=== PATIENT | female | born 1940 | race African-American/Black ===

== ENCOUNTER 2018-04-25 12:53 | Emergency (ER) | payer SELFPAY ==
[~2018-04-25] VITALS: Ht 160 cm; Wt 64.0 kg
[~2018-04-25 12:53] MED LIST: ASPI-1079; ATOR40TA70; DILT180C3; DOCUSATE; DONE5TAB26; GLYB2.5T2; LANTUS; PANT40TA4; PRAV80TA; VALS1TAB80; [UNRECOGNIZED DRUG - OTHER]
[2018-04-25] MEDS ORDERED: SODIUM CHLORIDE 0.9% 1,000 ML IV ONE (13:54)
[2018-04-25 14:55] LABS: BASOPHILS % 0.6 % (0.0-2.0); EOSINOPHILS % 0.5 % (0.0-5.0); HEMATOCRIT. 40.3 % (36.0-48.0); HEMOGLOBIN. 13.6 g/dL (12.0-16.0); LYMPHOCYTES % 41.4 % (20.0-50.0); MEAN CORPUSCULAR HEMOGLOBIN 28.5 pg (28.0-32.0); MEAN CORPUSCULAR VOLUME 84.2 fL (81.0-99.0); MEAN PLATELET VOLUME 7.5 fl (7.4-10.4); MONOCYTES % 9.7 % (2.0-8.0); NEUTROPHILS % 47.8 % (40.0-76.0); PLATELET 229 x1000/uL (130-400); RED BLOOD CELL COUNT 4.78 mill/uL (4.2-5.4); RED CELL DISTRIBUTION WIDTH 13.3 % (11.6-14.6)
[2018-04-25 14:59] LABS: CHLORIDE 107 mEq/L (98-107)
[2018-04-25 15:28] VITALS: BP 143/76
[2018-04-25 16:42] LABS: CLARITY URINE CLEAR (CLEAR); COLOR URINE YELLOW (YELLOW); KETONES URINE NEGATIVE (NEGATIVE); LEUKOCYTE ESTERASE URINE NEGATIVE (NEGATIVE); NITRITE URINE NEGATIVE (NEGATIVE); OCCULT BLOOD URINE NEGATIVE (NEGATIVE); PH URINE 6.5 (4.5-8.0); PROTEIN URINE NEGATIVE (NEGATIVE); SPECIFIC GRAVITY URINE 1.016 (1.005-1.030); UROBILINOGEN URINE 0.2 E.U./dL (0.2-1.0)
== END 2018-04-25 17:14 | disposition left against medical advice (07) ==
LOC: ER 12:53
DX: J02.9 Acute pharyngitis, unspecified (principal); R10.9 Unspecified abdominal pain; I10 Essential (primary) hypertension; E11.9 Type 2 diabetes mellitus without complications
CPT/HCPCS: 36415; 71045; 80053; 81003; 83690; 85025; 87070; 87086; 87430; 99285; J7030

== ENCOUNTER 2018-08-27 20:22 | Emergency (ER) | payer OTHER ==
[~2018-08-27] VITALS: Ht 167.6 cm; Wt 68.1 kg
[2018-08-27 23:03] LABS: BASOPHILS % 0.8 % (0.0-2.0); EOSINOPHILS % 0.3 % (0.0-5.0); HEMATOCRIT. 43.8 % (36.0-48.0); HEMOGLOBIN. 14.4 g/dL (12.0-16.0); LYMPHOCYTES % 21.7 % (20.0-50.0); MEAN CORPUSCULAR VOLUME 85.4 fL (81.0-99.0); MEAN PLATELET VOLUME 7.6 fl (7.4-10.4); MONOCYTES % 7.9 % (2.0-8.0); NEUTROPHILS % 69.3 % (40.0-76.0); PLATELET 266 x1000/uL (130-400); RED BLOOD CELL COUNT 5.13 mill/uL (4.2-5.4); RED CELL DISTRIBUTION WIDTH 13.1 % (11.6-14.6)
[2018-08-27 23:05] LABS: CHLORIDE 106 mEq/L (98-107)
[2018-08-27 23:46] VITALS: BP 189/88
== END 2018-08-28 01:00 | disposition home or self-care (01) ==
LOC: ER 20:22
DX: R11.2 Nausea with vomiting, unspecified (principal); R53.1 Weakness; R42 Dizziness and giddiness; E11.9 Type 2 diabetes mellitus without complications; I10 Essential (primary) hypertension; F03.90 Unspecified dementia, unspecified severity, without behavioral disturbance, psychotic disturbance, mood disturbance, and anxiety; Z90.710 Acquired absence of both cervix and uterus; Z79.899 Other long term (current) drug therapy
CPT/HCPCS: 36415; 93005; 99284

== ENCOUNTER 2021-07-13 14:02 | Inpatient (IN) | payer MEDICARE ==
[~2021-07-13] VITALS: Ht 157.5 cm; Wt 46.7 kg
[~2021-07-13 14:02] MED LIST changes: -DILT180C3; +DILT180C87; -PANT40TA4; +PANT40TA51
[2021-07-13 14:59] LABS: CHLORIDE 105 mEq/L (98-107)
[2021-07-13 15:00] LABS: CLARITY URINE CLEAR (CLEAR); COLOR URINE YELLOW (YELLOW); KETONES URINE NEGATIVE (NEGATIVE); LEUKOCYTE ESTERASE URINE NEGATIVE (NEGATIVE); NITRITE URINE NEGATIVE (NEGATIVE); OCCULT BLOOD URINE NEGATIVE (NEGATIVE); PROTEIN URINE NEGATIVE (NEGATIVE); SPECIFIC GRAVITY URINE 1.016 (1.005-1.030); UROBILINOGEN URINE 0.2 E.U./dL (0.2-1.0)
[2021-07-13 15:01] LABS: PROTHROMBIN TIME 10.9 sec (9.6-11.0)
[2021-07-13 15:03] LABS: ETHANOL BLOOD < 10 mg/dL
[2021-07-13 15:07] LABS: BASOPHILS % 0.5 % (0.0-2.0); EOSINOPHILS % 0.4 % (0.0-5.0); HEMATOCRIT. 37.1 % (36.0-48.0); HEMOGLOBIN. 12.3 g/dL (12.0-16.0); MEAN CORPUSCULAR HEMOGLOBIN 27.9 pg (28.0-32.0); MEAN CORPUSCULAR VOLUME 84.5 fL (81.0-99.0); MEAN PLATELET VOLUME 7.8 fl (7.4-10.4); MONOCYTES % 7.1 % (2.0-8.0); PLATELET 220 x1000/uL (130-400); RED BLOOD CELL COUNT 4.39 mill/uL (4.2-5.4); RED CELL DISTRIBUTION WIDTH 13.4 % (11.6-14.6)
[2021-07-13] MEDS ORDERED: IOHEXOL-350 100 ML BOTTLE ONE (15:17)
[2021-07-13 15:23] LABS: *AMPHETAMINES SCREEN URINE NEGATIVE (NEGATIVE); *BARBITURATES SCREEN URINE NEGATIVE (NEGATIVE); *BENZODIAZEPINES SCREEN URINE NEGATIVE (NEGATIVE); *COCAINE SCREEN URINE NEGATIVE (NEGATIVE)
[2021-07-13 15:24] LABS: CANNABINOID URINE SCREEN NEGATIVE (NEGATIVE); METHADONE URINE SCREEN NEGATIVE (NEGATIVE); OPIATES URINE SCREEN NEGATIVE (NEGATIVE); PHENCYCLIDINE URINE SCREEN NEGATIVE (NEGATIVE)
[2021-07-13] MEDS ORDERED: ASPIRIN 325MG EC TABLET PO ONE (16:45)
[2021-07-13 21:00] VITALS: BP 146/75
[2021-07-13 21:30] VITALS: BP 146/75
[2021-07-13] MEDS ORDERED: ACETAMINOPHEN 650MG/20.3ML UDC PO PRN (22:15)
[2021-07-13] MEDS: DONEPEZIL HCL 10MG TABLET PO SCH ×2 (22:15→22:56)
[2021-07-13] MEDS ORDERED: DEXTROSE 50% WATER 50ML SYRINGE IV PRN (22:15)
[2021-07-13] MEDS: LOSARTAN POTASSIUM 100 MG TABLET PO SCH ×2 (22:17→22:56)
[2021-07-13 23:15] VITALS: BP 151/68
[2021-07-14 04:00] VITALS: BP 149/69
[2021-07-14] MEDS ORDERED: LOSA100T32 MT (04:05)
[2021-07-14] MEDS ORDERED: DONE10TA43 MT (04:05)
[2021-07-14] MEDS ORDERED: *PATIENT'S OWN MEDICATION STORAGE XX SCH (04:30)
[2021-07-14] MEDS: INSULIN LISPRO 100 UNITS/ML SUBCUT SCH ×4 (06:03→20:38)
[2021-07-14] MEDS: BLOOD SUGAR DIAGNOSTIC STRIP TEST SCH ×4 (06:03→20:38)
[2021-07-14 06:39] LABS: BASOPHILS % 0.6 % (0.0-2.0); EOSINOPHILS % 0.7 % (0.0-5.0); HEMATOCRIT. 40.3 % (36.0-48.0); HEMOGLOBIN. 13.5 g/dL (12.0-16.0); LYMPHOCYTES % 26.7 % (20.0-50.0); MEAN CORPUSCULAR HEMOGLOBIN 28.4 pg (28.0-32.0); MEAN PLATELET VOLUME 7.9 fl (7.4-10.4); MONOCYTES % 9.2 % (2.0-8.0); NEUTROPHILS % 62.8 % (40.0-76.0); PLATELET 244 x1000/uL (130-400); RED BLOOD CELL COUNT 4.74 mill/uL (4.2-5.4); RED CELL DISTRIBUTION WIDTH 13.6 % (11.6-14.6)
[2021-07-14 07:47] LABS: CHLORIDE 107 mEq/L (98-107)
[2021-07-14 07:57] LABS: LDL CHOLESTEROL 137 mg/dL (5-100)
[2021-07-14 07:58] LABS: HDL CHOLESTEROL 86 mg/dL (40-59)
[2021-07-14 08:00] VITALS: BP 135/67
[2021-07-14] MEDS: DONEPEZIL HCL 10MG TABLET PO SCH (08:43)
[2021-07-14] MEDS: ASPIRIN 325MG EC TABLET PO SCH (08:43)
[2021-07-14] MEDS: LOSARTAN POTASSIUM 100 MG TABLET PO SCH (08:49)
[2021-07-14] MEDS ORDERED: ENOXAPARIN 40MG/0.4ML SYR SUBCUT SCH (09:00)
[2021-07-14 12:00] VITALS: BP 151/67
[2021-07-14] MEDS ORDERED: POTASSIUM CHLORIDE 20MEQ TABLET SR PO NR (12:15)
[2021-07-14] MEDS: AMLODIPINE 5MG TABLET PO SCH (13:03)
[2021-07-14 16:00] VITALS: BP 146/72
[2021-07-14 20:00] VITALS: BP 162/91
[2021-07-14] MEDS ORDERED: ATORVASTATIN CALCIUM 40MG TABLET PO SCH (21:00)
[2021-07-15] VITALS: BP 149/80
[2021-07-15 04:00] VITALS: BP 133/73
[2021-07-15] MEDS: BLOOD SUGAR DIAGNOSTIC STRIP TEST SCH ×2 (06:32→12:29)
[2021-07-15] MEDS: INSULIN LISPRO 100 UNITS/ML SUBCUT SCH ×2 (06:34→13:03)
[2021-07-15 06:53] LABS: BASOPHILS % 1.1 % (0.0-2.0); EOSINOPHILS % 1.1 % (0.0-5.0); HEMATOCRIT. 42.1 % (36.0-48.0); HEMOGLOBIN. 13.6 g/dL (12.0-16.0); LYMPHOCYTES % 31.9 % (20.0-50.0); MEAN CORPUSCULAR HEMOGLOBIN 27.7 pg (28.0-32.0); MEAN CORPUSCULAR VOLUME 85.6 fL (81.0-99.0); MEAN PLATELET VOLUME 7.8 fl (7.4-10.4); MONOCYTES % 11.6 % (2.0-8.0); NEUTROPHILS % 54.3 % (40.0-76.0); PLATELET 243 x1000/uL (130-400); RED BLOOD CELL COUNT 4.92 mill/uL (4.2-5.4)
[2021-07-15 07:01] LABS: CHLORIDE 110 mEq/L (98-107)
[2021-07-15 07:08] LABS: LDL CHOLESTEROL 131 mg/dL (5-100)
[2021-07-15 07:09] LABS: HDL CHOLESTEROL 87 mg/dL (40-59)
[2021-07-15 08:00] VITALS: BP 124/72
[2021-07-15] MEDS: AMLODIPINE 5MG TABLET PO SCH (08:48)
[2021-07-15] MEDS: LOSARTAN POTASSIUM 100 MG TABLET PO SCH (08:48)
[2021-07-15] MEDS: DONEPEZIL HCL 10MG TABLET PO SCH (08:48)
[2021-07-15] MEDS: ASPIRIN 325MG EC TABLET PO SCH (08:49)
[2021-07-15] MEDS ORDERED: ENOXAPARIN 30MG/0.3ML SYR SUBCUT SCH (09:00)
[2021-07-15 12:00] VITALS: BP 146/70
[2021-07-15 15:11] VITALS: BP 127/63
[2021-07-15 16:00] VITALS: BP 127/63
== END 2021-07-15 16:47 | disposition home or self-care (01) | DRG 93 ==
LOC: ER 14:02 → 8WST 16:15 → EDBEDREQSVC 16:19 → EDBEDREQTM 16:19 → EDBEDREQ 16:19 → ENRESERV 19:21
PROVIDERS: ADMIT Internal Medicine; ATTEND Internal Medicine
DX: G92.8 Other toxic encephalopathy (principal); E78.00 Pure hypercholesterolemia, unspecified; F03.90 Unspecified dementia, unspecified severity, without behavioral disturbance, psychotic disturbance, mood disturbance, and anxiety; I10 Essential (primary) hypertension; R26.89 Other abnormalities of gait and mobility; I65.21 Occlusion and stenosis of right carotid artery; M79.609 Pain in unspecified limb; E11.9 Type 2 diabetes mellitus without complications; E78.5 Hyperlipidemia, unspecified; Z90.710 Acquired absence of both cervix and uterus; Z86.73 Personal history of transient ischemic attack (TIA), and cerebral infarction without residual deficits
CPT/HCPCS: 36415; 70496; 70498; 71045; 80048; 80053; 80061; 80305; 80320; 81003; 82140; 82607; 82746; 82962; 83036; 83735; 84439; 84443; 84481; 84484; 85025; 93005; 93306; 93970; 97162; 97166; 99285; J1650; J1815; Q9967; G0480

== ENCOUNTER 2024-03-31 17:31 | Emergency (ER) | payer BC, MEDICARE ==
[~2024-03-31] VITALS: Ht 160 cm; Wt 58.0 kg
[~2024-03-31 17:31] MED LIST changes: -ASPI-1079; -DILT180C87; -DOCUSATE; +DONE10TA43 MT; -DONE5TAB26; -GLYB2.5T2; -LANTUS; +LOSA100T33 MT; -PANT40TA51; -PRAV80TA; -VALS1TAB80; -[UNRECOGNIZED DRUG - OTHER]
[2024-03-31 17:48] VITALS: BP 185/81; RESP 18; TEMP 98.5; O2SAT 99
[2024-03-31 17:49] VITALS: PULSE 94
[2024-03-31 18:26] LABS: EOSINOPHILS % 0.6 % (0.0-5.0); HEMATOCRIT. 42.9 % (36.0-48.0); HEMOGLOBIN. 14.1 g/dL (12.0-16.0); LYMPHOCYTES % 38.1 % (20.0-50.0); MEAN CORPUSCULAR HEMOGLOBIN 28.7 pg (28.0-32.0); MEAN CORPUSCULAR HGB CONC 32.9 g/dL (31.0-37.0); MEAN CORPUSCULAR VOLUME 87.3 fL (81.0-99.0); MEAN PLATELET VOLUME 7.8 fl (7.4-10.4); MONOCYTES % 7.8 % (2.0-8.0); NEUTROPHILS % 52.5 % (40.0-76.0); PLATELET 248 x1000/uL (130-400); RED BLOOD CELL COUNT 4.91 mill/uL (4.2-5.4); RED CELL DISTRIBUTION WIDTH 13.1 % (11.6-14.6); WHITE BLOOD COUNT 5.7 x1000/uL (4.5-11.0)
[2024-03-31 18:30] LABS: CHLORIDE 106 mEq/L (98-107); POTASSIUM 4.1 mEq/L (3.5-5.1); SODIUM 141 mEq/L (136-145)
[2024-03-31 18:31] LABS: CARBON DIOXIDE 29 mEq/L (21-32)
[2024-03-31 18:36] LABS: GLUCOSE 265 mg/dL (70-105)
[2024-03-31 18:37] LABS: UREA NITROGEN BLOOD 16 mg/dL (9-23)
[2024-03-31 18:38] LABS: ALANINE AMINOTRANSFERASE 11 IU/L (10-49); ALBUMIN 4.8 g/dL (3.2-4.8); ASPARTATE AMINOTRANSFERASE 17 IU/L (<34); BILIRUBIN DIRECT 0.1 mg/dL (<=3.0)
[2024-03-31 18:39] LABS: BILIRUBIN TOTAL 0.4 mg/dL (0.1-1.0); PROTEIN TOTAL 7.3 g/dL (6.0-8.3)
[2024-03-31] MEDS ORDERED: ACETAMINOPHEN 325MG TABLET PO ONE (20:00)
[2024-04-01 00:16] LABS: CLARITY URINE CLEAR (CLEAR); COLOR URINE YELLOW (YELLOW); GLUCOSE URINE NEGATIVE (NEGATIVE); KETONES URINE NEGATIVE (NEGATIVE); LEUKOCYTE ESTERASE URINE TRACE (NEGATIVE); NITRITE URINE NEGATIVE (NEGATIVE); OCCULT BLOOD URINE NEGATIVE (NEGATIVE); PROTEIN URINE 1+ (NEGATIVE); SPECIFIC GRAVITY URINE 1.012 (1.005-1.030); UROBILINOGEN URINE 0.2 E.U./dL (0.2-1.0)
[2024-04-01 00:40] LABS: RBC URINE 0-2 /hpf (0-2); WBC URINE 0-2 /hpf (0-2)
[2024-04-01 00:41] LABS: BACTERIA URINE NONE SEEN; SQUAMOUS EPITHELIAL CELL URINE FEW /lpf (RARE/1+)
[2024-04-01 00:42] LABS: YEAST URINE Few budding yeasts
== END 2024-04-01 01:31 | disposition home or self-care (01) ==
LOC: ER 17:31
DX: K52.9 Noninfective gastroenteritis and colitis, unspecified (principal); M25.552 Pain in left hip; E11.9 Type 2 diabetes mellitus without complications; F03.90 Unspecified dementia, unspecified severity, without behavioral disturbance, psychotic disturbance, mood disturbance, and anxiety; I10 Essential (primary) hypertension; Z90.710 Acquired absence of both cervix and uterus
CPT/HCPCS: 36415; 71045; 74176; 80048; 80076; 81003; 85025; 86850; 86900; 93970; 99284